=== PATIENT | male | born 1965 | race Hispanic/Latino ===

== ENCOUNTER 2021-11-01 11:37 | Observation (INO) | payer MEDICARE ==
[2021-11-01] MEDS ORDERED: Acetaminophen 650 MG Suppository PR PRN (12:48)
[2021-11-01] MEDS ORDERED: Acetaminophen 325 MG TAB PO PRN (12:48)
[2021-11-01] MEDS ORDERED: Ondansetron PF 4 MG/2 ML Vial IVP PRN (12:48)
[2021-11-01] MEDS ORDERED: hydrALAZINE 20 MG/ML VIAL SLOW IVP PRN (12:48)
[2021-11-01] MEDS ORDERED: Ondansetron ODT 4 MG TAB PO PRN (12:48)
[2021-11-01] MEDS ORDERED: Enoxaparin Sodium 40 MG/0.4 ML SYRINGE SC SCH (13:00)
[2021-11-01 13:07] VITALS: BMI 30.2
[2021-11-01 16:42] LABS: Hemoglobin A1c 5.1 % (4.0-6.0)
[2021-11-01] MEDS: Gabapentin 100 MG CAP PO SCH (20:47)
[2021-11-01] MEDS ORDERED: Atorvastatin Calcium 40 MG TAB PO SCH (21:00)
[2021-11-02 04:33] LABS: #Eosinphils 0.1 10x3/uL (0.0-0.5); #Monocytes 0.3 10x3/uL (0.0-1.1); %Basophils 0.8 % (0.0-2.0); %Eosinophils 3.1 % (0.0-6.0); %Lymphocytes 31.7 % (18.0-47.0); %Monocytes 8.6 % (0.0-10.0); %Neutrophils 55.2 % (40.0-75.0); Hemoglobin 13.1 g/dL (13.5-17.5); Mean Corpuscular HGB CONC 34.7 g/dL (32.0-36.0); Mean Corpuscular Hemoglobin 29.2 pg (27.0-33.0); Mean Corpuscular Volume 84.2 fl (81.2-95.1); Mean Platelet Volume 10.4 fl (7.4-10.4); Platelet Count 205 10x3/uL (150-450); RBC Distribution Width 13.3 % (11.5-14.5); Red Blood Cell (RBC) Count 4.49 10x6/uL (4.32-5.72); White Blood Cell (WBC) Count 3.6 10x3/uL (3.5-10.5)
[2021-11-02 04:52] LABS: Anion Gap 12 mmol/L (10-20); BUN (Urea Nitrogen) 11 mg/dL (8.4-25.7); Calc. Creatinine Clearance 113 mL/min (70-130); Calcium 9.1 mg/dL (7.8-10.44); Carbon Dioxide 26 mmol/L (22-29); Chloride 106 mmol/L (98-107); Cholesterol 191 mg/dl (< 200 Desired); Glucose 103 mg/dL (70-105); HDL Cholesterol 38 mg/dL (>60 Neg Risk); LDL Cholesterol, Calculated 111 mg/dL; Potassium 3.7 mmol/L (3.5-5.1); Sodium 140 mmol/L (136-145); Triglycerides 208 mg/dL (Less than 150)
[2021-11-02] MEDS ORDERED: Enoxaparin Sodium 40 MG/0.4 ML SYRINGE SC SCH (09:00)
[2021-11-02] MEDS ORDERED: Cyanocobalamin (Vitamin B-12) 1,000 MCG TAB PO SCH (09:00)
[2021-11-02] MEDS ORDERED: Loratadine 10 MG TAB PO SCH (09:00)
[2021-11-02] MEDS ORDERED: Aspirin 81 mg Enteric Coated Tablet PO SCH (09:00)
[2021-11-02] MEDS: Gabapentin 100 MG CAP PO SCH ×2 (09:58→16:20)
[2021-11-02 17:59] VITALS: BP 121/71; TEMP 97.3
[2021-11-02] MEDS ORDERED: Cyclobenzaprine 10 MG TAB PO SCH (21:00)
[2021-11-02] MEDS ORDERED: ALPRAZolam 0.25 MG TAB PO SCH (21:00)
== END 2021-11-02 18:00 | disposition home or self-care (01) ==
LOC: INTOOBSV 11:37 → CSHTELE 11:37
PROVIDERS: ADMIT Emergency Medicine; ATTEND Family Medicine
DX: G45.9 Transient cerebral ischemic attack, unspecified (principal); I10 Essential (primary) hypertension; E78.5 Hyperlipidemia, unspecified; K21.9 Gastro-esophageal reflux disease without esophagitis; F41.9 Anxiety disorder, unspecified; G47.00 Insomnia, unspecified; Z79.899 Other long term (current) drug therapy
CPT/HCPCS: 70551; 80048; 80061; 82607; 82746; 83036; 83090; 83735; 83921; 84443; 85025; 93306; 93880; 96372 ×2; 97139 ×5; G0378 ×2; 36415; J1650